=== PATIENT | male | born 1960 | race Caucasian/White ===

== ENCOUNTER 2017-07-28 16:50 | Emergency (ER) | payer BC, SELFPAY ==
[2017-07-28 17:06] VITALS: BP 128/74; PULSE 103; RESP 18; TEMP 37.9; O2SAT 97
--- NOTE | 2017-07-28 17:55 | ED_ITS ---
HPI - Wound/Laceration <SAILAJA Stewart - Last Filed: 07/28/17 22:14> General Chief Complaint: Wound/Laceration Stated Complaint: DOG BITE TO MOUTH Time Seen by Provider: 07/28/17 17:10 History of Present Illness HPI narrative: 57-year-old male here for laceration to the left side of his lower lip. He states that his dog tried to jump out of the boat he want to stop it and of the dogs foot accidentally caught him in the lip with her claw causing laceration. he reports that this happened just prior to arrival. He states that his tetanus is up-to-date. No other injuries or concerns. Review of Systems <SAILAJA Stewart - Last Filed: 07/28/17 22:14> Constitutional Denies chills, Denies fever(s), Denies lethargy and Denies weakness Eyes Denies change in vision, Denies eye discharge, Denies irritation and Denies loss of vision Cardiovascular Denies chest pain, Denies irregular heart rhythm, Denies lightheadedness, Denies palpitations, Denies dyspnea, Denies dyspnea on exertion and Denies orthopnea Respiratory Denies cough, Denies dyspnea, Denies dyspnea on exertion and Denies wheezing Integumentary/Breasts Comments: laceration into of the left corner of the lower lip Neurologic Denies loss of vision and Denies weakness Endocrine Denies palpitations Allergic/Immunologic Denies wheezing Exam <SAILAJA Stewart - Last Filed: 07/28/17 22:14> Const General: cooperative and well developed Nutritional Appearance: well nourished Orientation: alert, awake, oriented x3 and not confused HENMS Mouth: other (2 cm laceration to corner of left lower lip slightly crosses the vermilion border. No internal oral injuries laceration is not through and through. Bleeding is controlled.) Eyes General: appearance normal, both eyes and all related structures Eyelids: eyelids normal Conjunctivae: conjunctivae normal Sclera: sclerae normal Pupils: PERRL EOM: EOM intact bilaterally Resp Effort & Inspection: normal respiratory effort, able to speak in complete sentences, no respiratory distress and no use of accessory muscles Auscultation: clear to auscultation bilaterally, no rales, no rhonchi and no wheezes Cardio Rate: regular rate Rhythm: regular rhythm Heart Sounds: no click, no gallops, no murmurs and no rubs Neuro General: alert, oriented x3, gait normal and no focal motor deficits Cranial Nerves: CN's II-XI intact bilaterally Speech: speech normal Motor: strength 5/5 throughout Sensory Exam: no sensory deficits noted Procedures <SAILAJA Stewart - Last Filed: 07/28/17 22:14> Joint Aspiration/Injection Laceration 1: Site: face (2 cm laceration to left lower lip) Size (cm): 2 Description: irregular and involves luzmaria border Depth: simple, single layer Local Anesthetic: with epi Amount of anesthesia used (mL): 2 Pre-repair: wound explored and irrigated extensively Skin layer closed with: nylon Size (cm): 5-0 Number of sutures: 4 Technique: simple, interrupted MDM - Wound/Laceration <SAILAJA Stewart - Last Filed: 07/28/17 22:14> MDM Narrative Medical decision making narrative: Laceration left lower lip was closed with 4 sutures. Dress wound daily with bacitracin couple times a day until healed. Sutures to be removed in 5 days. [id number] Tylenol Motrin as needed for any discomfort. Follow up with primary care provider. Return emergency room for any worsening symptoms or signs of infection. Course <SAILAJA Stewart - Last Filed: 07/28/17 22:14> Last Vital Signs Temp 100.2 F H 07/28/17 17:06 Pulse 98 H 07/28/17 18:10 Resp 16 07/28/17 18:10 BP 128/74 H 07/28/17 18:10 Pulse Ox 97 07/28/17 18:10 <Emmanuel Rankin DO - Last Filed: 07/29/17 08:58> Last Vital Signs Temp 100.2 F H 07/28/17 17:06 Pulse 98 H 07/28/17 18:10 Resp 16 07/28/17 18:10 BP 128/74 H 07/28/17 18:10 Pulse Ox 97 07/28/17 18:10 Discharge Plan Departure Patient Disposition: Home, Self-Care Clinical Impression: Facial laceration Discharge Date/Time: 07/28/17 18:10 Interventions: ED Discharge Assessment Last Done: 07/28/17 18:10 Instructions: DI for Laceration Repair Activity Restrictions/Additional Instructions: Laceration left lower lip was closed with 4 sutures. Dress wound daily with bacitracin couple times a day until healed. Sutures to be removed in 5 days. [id number] Tylenol Motrin as needed for any discomfort. Follow up with primary care provider. Return emergency room for any worsening symptoms or signs of infection. Referrals: [facility] [Provider Group] <Emmanuel Rankin DO - Last Filed: 07/29/17 08:58> Sign out: I was immediately available in the department for consultation. Documentation has been reviewed. I agree with assessment and plan.
[2017-07-28 18:10] VITALS: BP 128/74; PULSE 98; RESP 16; O2SAT 97
== END 2017-07-28 18:10 | disposition home or self-care (01) ==
PROVIDERS: Emergency Provider Nurse Practitioner Family
DX: S01.511A Laceration without foreign body of lip, initial encounter (principal); W54.1XXA Struck by dog, initial encounter
CPT/HCPCS: 12013; 99282; 99283